=== PATIENT | female | born 1995 | race Caucasian/White ===

== ENCOUNTER 2017-09-01 08:57 | Inpatient (IN) | payer OTHER ==
[2017-09-01] MEDS ORDERED: Ringers Lactate 1,000 ML IV SCH (09:00)
[2017-09-01] MEDS ORDERED: METOCLOPRAMIDE 10 MG/2mL INJ IV PRN (09:00)
[2017-09-01] MEDS ORDERED: DIPHENHYDRAMINE 50 MG/ML VIAL IV PRN (09:00)
[2017-09-01] MEDS ORDERED: miSOPROStol 100 MCG TAB PO ONE (09:00)
[2017-09-01] MEDS ORDERED: ONDANSETRON 4 MG/2 ML VIAL IV PRN (09:00)
[2017-09-01] MEDS ORDERED: Ringers Lactate 1,000 ML IV PRN (09:00)
--- OUTSIDE RECORDS SUMMARY | 2017-09-01 10:21 | XMS REPORT ---
:1995 Author Organization eClinicalWorks Care Team Providers Name Role Phone Jaqui Cerda Provider Role Unavailable Allergies No Known Allergies Problems Problem Type Condition Code Onset Dates Condition Status Problem Normal in third trimester Z34.93 Active Assessment Normal in third trimester Z34.93 Active Problem Encounter for planned induction of Z34.90 Active labor Assessment Encounter for planned induction of Z34.90 Active labor Medications Medication Code System Code Instructions Start Date End Date Status Dosage Ferralet 90 [facility] [place] [address] 90 orally once a Jun 16, Active one tablet - day 2017 Results No Known Results Summary Purpose eClinicalWorks Submission
[2017-09-01 11:08] LABS: RPR Titer ND
[2017-09-01 11:11] LABS: Urine Appearance CLOUDY; Urine Bilirubin NEGATIVE (NEG); Urine Blood NEGATIVE (NEG); Urine Color YELLOW; Urine Glucose NEGATIVE (NEG); Urine Protein NEGATIVE (NEG); Urine Specific Gravity 1.015 (1.005-1.030); Urine Urobilinogen 0.2 mg/dL (0.2-1.0)
[2017-09-01 11:19] LABS: Urine Microscopic Reflex ORDER UMIC
[2017-09-01 11:28] LABS: Absolute Lymphocytes (CBC) 1.3 K/uL (0.7-4.9); Absolute Monocytes 0.6 K/uL (0.1-1.3); Absolute Neutrophil 6.4 K/uL (1.8-8.0); Basophils % 0.2 % (0-1.3); Eosinophils % 0.2 % (0-4.4); Hematocrit 36.9 % (36.0-45.0); Lymphocytes % 15.2 % (15.3-44.8); MCH 32.2 pg (27.0-35.0); MCV 92.5 fL (80-100); MPV 8.4 fL (7.6-11.3); Monocytes % 7.1 % (3.3-12.3); RBC Red Blood Cell Count 3.99 M/uL (3.86-4.86)
[2017-09-01 11:31] LABS: Urine Bacteria 20-50 /HPF (<20); Urine Culture Reflex Order REFLEXED; Urine RBC <5 /HPF (NONE SEEN)
[2017-09-01 11:56] VITALS: BMI 30.7
[2017-09-01] MEDS ORDERED: miSOPROStol 100 MCG TAB VAG SCH (15:00)
--- NOTE | 2017-09-01 15:31 | P.HP ---
Certification for Inpatient Patient admitted to: Inpatient With expected LOS: >2 Midnights Patient will require the following post-hospital care: None Practitioner: I am a practitioner with admitting privileges, knowledge of patient current condition, hospital course, and medical plan of care. Services: Services provided to patient in accordance with Admission requirements found in Title 42 Section 412.3 of the Code of Federal Regulations Patient History Date of Service: 09/01/17 Reason for admission: Induction of labor History of Present Illness: 22 y.o. G1 at 40w6d admitted for IOL. She is going to have cervical ripening with cytotec. Her has been overall uncomplicated and she has had adequate care. She has been prescribed iron supplementation for mild anemia with adequate response. Fetus cephalic by U/S 3 days ago. She denies painful contractions, LOF, or vaginal bleeding. GBS negative. JOYCE: 08/26/2017. Allergies No Known Allergies Allergy (Verified 09/01/17 11:08) Home Medications: Iron Carb,Gl/FA/B12/C/Docusate [Ferralet 90 Tablet] 1 pill PO DAILY 09/01/17 Vit/Fe Fumarate/FA [ Rx Tablet] 1 each PO DAILY 09/01/17 - Past Medical/Surgical History Has patient received pneumonia vaccine in the past: No Diabetic: No Past Medical History: Patient denies medical history -: Mild anemia -: T&A 1996 -: [place] teeth removal 2007 - Family History Father -: Hypertension - Social History Smoking Status: Never smoker Alcohol use: No CD- Drugs: No Caffeine use: No Place of Residence: Home Review of Systems 10-point ROS is otherwise unremarkable Physical Examination - Vital Signs Temperature: 97.8 F Blood Pressure: 124/72 Pulse: 81 Respirations: 20 - Physical Exam General: Alert, In no apparent distress Respiratory: Other (Normal effort) Cardiovascular: Normal pulses Musculoskeletal: Swelling (Trace B/L LE edema) Integumentary: No rashes, No breakdown Neurological: Normal strength at 5/5 x4 extr - Studies Laboratory Data (last 24 hrs) 09/01/17 10:40: WBC 8.3, Hgb 12.9, Hct 36.9, Plt Count 217 Female Exam - Female Pelvic Cervix: Dilation (closed by nursing exam), Effacement (thick), station ( high) - Obstetrics heart rate tracing: Category 1 Contractions: Frequency (Irregular) Amniotic membrane: Intact Assessment and Plan - Problems (Diagnosis) (1) Elective induction of labor planned Current Visit: Yes Status: Acute Plan: Admit to L&D for cervical ripening. Start with PO cytotec then transition to PV. Plan for 3 doses, following by pitocin when favorable. May be up to ambulate following 1h continuous monitoring after cytotec dosing. May have ice chips and popsicles for now. - Advance Directives Does patient have a Living Will: No Does patient have a Durable POA for Healthcare: No
[2017-09-01] MEDS ORDERED: miSOPROStol 100 MCG TAB VAG ONE (21:15)
[2017-09-01 22:11] LABS: RPR (Rapid Plasma Reagin) NON-REACT (NON-REACT)
[2017-09-02] MEDS ORDERED: BUTORPHANOL 1 MG/ML INJ ONE (02:51)
[2017-09-02] MEDS ORDERED: BUTORPHANOL 1 MG/ML INJ IV ONE (03:06)
[2017-09-02] MEDS ORDERED: ROPIVACAINE HCL 100 ML IV PRN (03:09)
[2017-09-02] MEDS ORDERED: FENTANYL CITR 100 MCG/2 ML IV ONE (03:09)
[2017-09-02] MEDS ORDERED: ROPIVACAINE HCL 2 MG/ML 100ML IV ONE (03:10)
[2017-09-02] MEDS ORDERED: ROPIVACAINE HCL 20 ML ONE ×2 (03:17→11:53)
--- NOTE | 2017-09-02 09:03 | P.PN ---
Subjective Date of Service: 09/02/17 Chief Complaint: Induction of labor Subjective: Doing well (Pain is well controlled now with epidural.) Review of Systems 10-point ROS is otherwise unremarkable Physical Examination - Vital Signs Temperature: 97.8 F Blood Pressure: 124/72 Pulse: 81 Respirations: 20 - Physical Exam General: Alert, In no apparent distress, Oriented x3 Respiratory: Other (Normal effort) Cardiovascular: Normal pulses Gastrointestinal: Other (Gravid, soft, nontender) Musculoskeletal: Swelling (Trace lower extremity pitting edema bilaterally) Integumentary: No rashes, No breakdown Other Physical/Emotional Findings: Cervix: /-1, anterior, soft - Studies Laboratory Data (last 24 hrs) 09/01/17 10:40: WBC 8.3, Hgb 12.9, Hct 36.9, Plt Count 217 Assessment And Plan - Current Problems (Diagnosis) (1) Elective induction of labor planned Onset Date: 09/02/17 Current Visit: Yes Status: Acute Plan: Patient status post 3 doses of Cytotec for cervical ripening. She had spontaneous rupture membranes at around 3:00 a.m. with clear fluid noted per RN. (2) SROM (spontaneous rupture of membranes) Current Visit: Yes Status: Acute Plan: Will start Pitocin for augmentation. Patient is doing well with epidural for pain control and Medina is in place. Will keep on continuous monitoring. MF status is overall reassuring.
[2017-09-02] MEDS ORDERED: OXYTOCIN/LR 20 UNIT/1,000 ML BAG IV SCH (10:00)
[2017-09-02] MEDS ORDERED: NA CIT/CITRIC AC 30 ML ORAL UDC PO ONE (10:38)
[2017-09-02] MEDS ORDERED: METOCLOPRAMIDE 10 MG/2mL INJ IV SCH (11:00)
[2017-09-02] MEDS ORDERED: ROPIVACAINE HCL 0.2% 20ML AMP IV ONE (11:59)
[2017-09-02] MEDS ORDERED: LIDOCAINE 2% INJ, 20 mL 0 ML ONE (12:31)
[2017-09-02] MEDS ORDERED: METHYLERGONOVINE 0.2MG/ML AMP IM ONE (12:41)
[2017-09-02] MEDS ORDERED: CARBOPROST TROME 250 MCG/ML IM ONE (12:41)
[2017-09-02] MEDS ORDERED: OXYTOCIN 10 UNIT/ML ML IV ONE (18:37)
[2017-09-02] MEDS ORDERED: MORPHINE SULFATE/PF 1 MG/ML (10 ML AMP) ONE (18:37)
[2017-09-02] MEDS ORDERED: LIDOCAINE 2% W/EPI 1:200,000 MPF 20 ML VIAL IM ONE ×2 (18:37→19:44)
[2017-09-02] MEDS ORDERED: CEFAZOLIN/SWI 2gm 2 GM/20 ML SYR ONE (18:42)
--- NOTE | 2017-09-02 18:44 | P.PN ---
Date of Service: 09/02/17 Pt seen and examined. She has been pushing for over 2 hours with little progress. Caput/edema noted. position likely ARMANI. Discussed continuing second stage, episiotomy and vacuum extraction, but patient declines. She doesn 't wish to continue pushing and is requesting a . Benefits, risks, and alternatives discussed. Notified anesthesia and OR staff. OR is not ready yet and needs to be cleaned. Discussed with in house counsel who reports she discussed with cleaning crew. Proceed to OR when ready.
[2017-09-02] MEDS ORDERED: MORPHINE 4 MG/ML SYR IV PRN (20:12)
[2017-09-02] MEDS ORDERED: DOCUSATE NA/SENNA CONC 1 TAB PO PRN (20:12)
[2017-09-02] MEDS ORDERED: ZOLPIDEM TARTRATE 5 MG TABLET PO PRN (20:12)
[2017-09-02] MEDS ORDERED: ACETAMINOPHEN 500 MG TAB PO PRN (20:12)
--- NOTE | 2017-09-02 20:19 | P.OP ---
Day Habilitation Supervisor: David Serrano Preoperative diagnosis: Second stage arrest Postoperative diagnosis: Same Primary procedure: 1'LTCS Anesthesia: Combined spinal-epidural Estimated blood loss: 600 cc Specimen: Placenta Findings: See operative report Operative Technique: Intra-operative findings: The uterus, fallopian tubes and ovaries were found to be normal. Signs of inflammation noted, possible PID.The infant was in a LOP position. The is female and weighed 8 lb 12 oz. The 's Apgars were 9 at 1 min. and 10 at 5 min. Procedure described: The patient was taken to the operating room within IV running with antibiotics infusing where she was placed in a dorsal supine position with a slight leftward tilt. She was prepped and draped in the normal sterile fashion from the xiphoid sternum to the midthighs including the vulva and vagina. A Med[place] catheter was already placed and connected to dependent drainage. PAS stockings were in place and activated. A timeout was done per our usual protocol. A Pfannenstielincision was made about 1 cm above the symphysis pubis and carried out through the subcutaneous tissue with the scalpel. The fascia was nicked in the midline and the fascial incision was extended laterally with Azul scissors. The superior aspect of the fascial incision was tented up and bluntly and sharply dissected off the rectus muscles below. In a similar fashion, the inferior aspect of the fascial incision was tented up and bluntly and sharply dissected off the rectus muscles below. The rectus muscles were in the midline, the peritoneum was identified and entered sharply between two hemostats using Metzenbaum scissors. The peritoneal incision was extended superiorly and inferiorly with good visualization of intraperitoneal organs and the bladder. The bladder blade was placed and a bladder flap was developed. The bladder blade was replaced and a transverse curvilinear incision was made in the lower uterine segment. The incision was extended laterally with blunt digital dissection. The surgeon's hand was placed into the incision gently and the 's head was elevated, releasing suction. The head was delivered, followed by the torso with ease. The mouth and nose were suctioned with and suction bulb. The umbilical cord was clamped and cut and the infant was handed off to the waiting care attendants. Cord blood was obtained. The uterus was massaged and the placenta was expressed. The uterus was exteriorized and cleared of all clots and debris. The bladder blade was replaced, the edges of the uterine incision where grasped with ring forceps and the incision was closed using 0-Monocryl suture in a running un-locking fashion and closed in 2 layers. The incision was inspected and found to be hemostatic. The bladder peritoneum was then closed with 3-0 Monocryl suture in a running fashion. The pelvic peritoneum was not irrigated, but was cleared of all clots and debris. The uterus was replaced into the peritoneal cavity. The medial edges of the rectus muscles were plicated in the midline using 3-0 Monocryl suture in a running, unlocked fashion. The rectus muscles were inspected and found to be hemostatic. The fascia was then closed with 0-Vicryl suture in a running fashion. The subcutaneous tissues were copiously lavaged with warm normal saline. Hemostasis was noted. The skin was closed with a subcuticular stitch of 3-0 Monocryl suture. The incision was cleansed, tincture of benzoin was applied and 1/2 inch Steri-Strips were applied. An occlusive dressing was applied. Sponge, needle, instrument counts were correct x 2. There were no complications and patient tolerated the procedure well. She was taken to recovery in good condition and allowed to castaneda with infant Complications: None Transferred to: Recovery Room Condition: Good
[2017-09-02] MEDS: KETOROLAC 30 MG/ML INJ IV SCH (21:00)
[2017-09-02] MEDS ORDERED: NA CHLORIDE 0.9% 1,000 ML IV SCH (21:00)
[2017-09-02] MEDS ORDERED: Ringers Lactate 2,000 ML IV ONE (21:15)
[2017-09-02] MEDS: METOCLOPRAMIDE 10 MG/2mL INJ IV SCH (21:37)
[2017-09-03 02:53] LABS: HBsAG Nonreactive (Nonreactive)
[2017-09-03] MEDS: METOCLOPRAMIDE 10 MG/2mL INJ IV SCH (02:54)
[2017-09-03] MEDS: KETOROLAC 30 MG/ML INJ IV SCH (02:54)
[2017-09-03 06:13] LABS: Absolute Lymphocytes (CBC) 1.2 K/uL (0.7-4.9); Absolute Monocytes 0.8 K/uL (0.1-1.3); Absolute Neutrophil 11.7 K/uL (1.8-8.0); Basophils % 0.2 % (0-1.3); Hematocrit 31.3 % (36.0-45.0); Lymphocytes % 8.6 % (15.3-44.8); MCH 31.8 pg (27.0-35.0); MCV 92.8 fL (80-100); MPV 8.3 fL (7.6-11.3); Monocytes % 5.8 % (3.3-12.3); RBC Red Blood Cell Count 3.37 M/uL (3.86-4.86)
[2017-09-03 06:58] LABS: Blood Morphology Comment NOTED (NOT SEEN); Ovalocytes 1+; Platelet Estimate ADEQ
[2017-09-03] MEDS ORDERED: FAMOTIDINE 20 MG/2 ML VIAL IV SCH (09:00)
--- NOTE | 2017-09-03 09:24 | P.PN ---
Subjective Date of Service: 09/03/17 Chief Complaint: Induction of labor Subjective: Tolerating diet, Improving, Doing well Pain is well controlled. She is requesting an abdominal binder. Ambulation encouraged initially with assistance. Baby is doing well. Review of Systems 10-point ROS is otherwise unremarkable Physical Examination - Vital Signs Temperature: 98.2 F Blood Pressure: 121/69 Pulse: 93 Respirations: 20 - Physical Exam General: Alert, In no apparent distress, Oriented x3 Respiratory: Clear to auscultation bilaterally, Normal air movement Cardiovascular: Regular rate/rhythm, Normal S1 S2 Gastrointestinal: Hypoactive, Soft and benign, No rebound, No guarding, Other ( Dressing is C/D/I) Musculoskeletal: No erythema, No tenderness, Swelling (2+ B/L LE edema) Integumentary: No rashes, No breakdown Neurological: Normal speech, Normal strength at 5/5 x4 extr Other Physical/Emotional Findings: Cervix: 3/90/-1, anterior, soft - Studies Laboratory Data (last 24 hrs) 09/03/17 04:41: WBC 13.7 H D, Hgb 10.7 L, Hct 31.3 L D, Plt Count 168 D Microbiology Data (last 24 hrs): 09/01/17 10:40 Clean Catch Urine [place] Count - Final >100,000 CFU/ML. 09/01/17 10:40 Clean Catch Urine - Final Assessment And Plan - Current Problems (Diagnosis) (1) Elective induction of labor planned Onset Date: 09/02/17 Current Visit: Yes Status: Resolved (2) SROM (spontaneous rupture of membranes) Onset Date: 09/03/17 Current Visit: Yes Status: Resolved (3) delivery delivered Onset Date: 09/03/17 Current Visit: Yes Status: Acute Plan: Normal POD #1. Labs reviewed, H/H is appropriate. Routine post-op care is planned. Continue to advance diet, ambulation encouraged. Transition to oral pain meds. (4) Leukocytosis Current Visit: Yes Status: Acute Plan: Pt is afebrile and not tachycardic. No signs of acute infection. Repeat labs in AM. Qualifiers: Leukocytosis type: bandemia Qualified Code(s): D72.825 - Bandemia Plan to discharge in: 48 Hours
[2017-09-03] MEDS ORDERED: ONDANSETRON 4 MG (ODT) TAB PO PRN (09:31)
[2017-09-03] MEDS ORDERED: DIPHENHYDRAMINE 25 MG TAB/CAP PO PRN (09:31)
[2017-09-03] MEDS ORDERED: METOCLOPRAMIDE 5 MG TAB ONE (09:40)
[2017-09-03] MEDS ORDERED: HYDROCODONE/APAP 5/325 MG TAB ONE (09:41)
[2017-09-03] MEDS: METOCLOPRAMIDE 5 MG TAB PO SCH ×2 (09:44→17:02)
[2017-09-03] MEDS: HYDROCODONE/APAP 5/325 MG TAB PO PRN ×3 (09:44→20:14)
[2017-09-03] MEDS: IBUPROFEN 400 MG TAB PO PRN ×2 (13:03→21:45)
[2017-09-04] MEDS: METOCLOPRAMIDE 5 MG TAB PO SCH ×4 (00:30→18:18)
[2017-09-04] MEDS: HYDROCODONE/APAP 5/325 MG TAB PO PRN ×3 (04:00→13:27)
[2017-09-04 05:20] LABS: Absolute Lymphocytes (CBC) 1.4 K/uL (0.7-4.9); Absolute Monocytes 0.9 K/uL (0.1-1.3); Absolute Neutrophil 10.8 K/uL (1.8-8.0); Basophils % 0.1 % (0-1.3); Eosinophils % 0.2 % (0-4.4); Hematocrit 32.2 % (36.0-45.0); Lymphocytes % 10.4 % (15.3-44.8); MCH 31.7 pg (27.0-35.0); MCV 93.4 fL (80-100); MPV 7.9 fL (7.6-11.3); Monocytes % 7.2 % (3.3-12.3); RBC Red Blood Cell Count 3.45 M/uL (3.86-4.86)
[2017-09-04] MEDS: NA CHLORIDE 0.9% IVPB SCH ×2 (09:00→16:48)
[2017-09-04] MEDS: GENTAMICIN IVPB SCH ×2 (09:00→16:48)
--- NOTE | 2017-09-04 09:02 | P.DS ---
Admission Date: 09/01/17 Discharge Date: 09/07/17 Disposition: ROUTINE DISCHARGE Comment: D/c home due to developing signs of endometritis. Discharge Condition: GOOD Reason for Admission: Induction of labor - Problems (1) delivery delivered Onset Date: 09/03/17 Status: Resolved (2) Leukocytosis Status: Acute Qualifiers: Leukocytosis type: bandemia Qualified Code(s): D72.825 - Bandemia Brief History of Present Illness: 22 y.o. G1 at 40w6d admitted for IOL. She is going to have cervical ripening with cytotec. Her has been overall uncomplicated and she has had adequate care. She has been prescribed iron supplementation for mild anemia with adequate response. Fetus cephalic by U/S 3 days ago. She denies painful contractions, LOF, or vaginal bleeding. GBS negative. JOYCE: 08/26/2017. Hospital Course: Pt admitted for IOL, which was started with cervical ripening. She progressed well following SROM and was given epidural for pain control. During 2nd stage, her pain increased again despite re-dosing of epidural. We discussed continuing 2nd stage with vacuum delivery, but patient declined and requested a . It was done without incident. On POD #2 patient developed low grade temp, bandemia, and uterine tenderness. Discharge home was held and abx were given for greater than 24 h and clinical improvement prior to d/c home. Vital Signs/Physical Exam: Temp Pulse Resp BP Pulse Ox 99.2 F 87 16 123/75 09/04/17 07:30 09/04/17 07:30 09/04/17 07:30 09/04/17 07:30 General: Alert, In no apparent distress, Oriented x3 Respiratory: Clear to auscultation bilaterally Cardiovascular: Normal S1 S2 Gastrointestinal: Normal bowel sounds (Tenderness on palpation. Incision: C/D/I ) Musculoskeletal: Swelling (B/L LE edema improving) Integumentary: No rashes, No breakdown Other Physical/Emotional Findings: Cervix: 3/90/-1, anterior, soft Laboratory Data at Discharge: WBC 13.2 K/uL (4.3-10.9) H 09/04/17 04:23 Hgb 10.9 g/dL (12.0-15.0) L 09/04/17 04:23 Hct 32.2 % (36.0-45.0) L 09/04/17 04:23 Plt Count 170 K/uL (152-406) 09/04/17 04:23 Home Medications: Iron Carb,Gl/FA/B12/C/Docusate [Ferralet 90 Tablet] 1 pill PO DAILY 09/01/17 Vit/Fe Fumarate/FA [ Rx Tablet] 1 each PO DAILY 09/01/17 Ibuprofen 800 mg PO Q8HP #45 tablet 09/04/17 New Medications: Ibuprofen 800 mg PO Q8HP #45 tablet Patient Discharge Instructions: See physician in 1 week for incision check. Call sooner for problems. Complete pelvic rest. Diet: Regular Activity: No lifting more than 10 lbs Followup: Jaqui Cerda MD [ACTIVE - CAN ADMIT] -
--- NOTE | 2017-09-04 15:58 | P.PN ---
Date of Service: 09/04/17 RN call to report increased temperature all did not meeting criteria for postop fever. However, due to possible risk, will order labs, re-establish IV, and start fluids as well as antibiotics. Will continue to monitor and hold off discharge tomorrow at this time.
[2017-09-04] MEDS ORDERED: Gentamicin Inj 120 MG in NA CHLORIDE 0.9% 100 ML IVPB ONE (16:00)
[2017-09-04] MEDS ORDERED: NA CHLORIDE 0.9% 1,000 ML ONE (16:14)
[2017-09-04 16:26] LABS: Absolute Lymphocytes (CBC) 1.2 K/uL (0.7-4.9); Absolute Monocytes 0.8 K/uL (0.1-1.3); Absolute Neutrophil 10.7 K/uL (1.8-8.0); Basophils % 0.1 % (0-1.3); Eosinophils % 0.2 % (0-4.4); Hematocrit 31.8 % (36.0-45.0); Lymphocytes % 9.4 % (15.3-44.8); MCH 32.5 pg (27.0-35.0); MPV 7.5 fL (7.6-11.3); Monocytes % 6.4 % (3.3-12.3); RBC Red Blood Cell Count 3.41 M/uL (3.86-4.86)
[2017-09-04 16:33] LABS: BUN Blood Urea Nitrogen 6 mg/dL (6-20); Bicarbonate 25 mEq/L (21-31); Glucose Level 88 mg/dL (65-120); Potassium 3.3 mEq/L (3.6-5.0); Sodium Level 139 mEq/L (135-145)
[2017-09-04] MEDS: NA CHLORIDE 0.9% 1,000 ML IV SCH (16:45)
[2017-09-04] MEDS: IBUPROFEN 400 MG TAB PO PRN (16:45)
[2017-09-04] MEDS: CLINDAMYCIN INJ 900 MG in NA CHLORIDE 0.9% 50 ML IV SCH (17:50)
[2017-09-04] MEDS ORDERED: AMPICILLIN SODIUM 125 MG VIAL IV SCH (18:00)
[2017-09-05] MEDS ORDERED: METHYLERGONOVINE 0.2MG/ML AMP IM ONE (00:54)
[2017-09-05] MEDS: GENTAMICIN IVPB SCH ×2 (01:00→13:44)
[2017-09-05] MEDS: NA CHLORIDE 0.9% IVPB SCH ×2 (01:00→13:44)
[2017-09-05] MEDS: NA CHLORIDE 0.9% 1,000 ML IV SCH (01:00)
[2017-09-05] MEDS: HYDROCODONE/APAP 5/325 MG TAB PO PRN ×2 (01:00→07:16)
[2017-09-05] MEDS: CLINDAMYCIN INJ 900 MG in NA CHLORIDE 0.9% 50 ML IV SCH ×3 (02:10→16:45)
[2017-09-05] MEDS: METOCLOPRAMIDE 5 MG TAB PO SCH ×3 (06:00→11:39)
[2017-09-05 06:48] LABS: Absolute Lymphocytes (CBC) 1.4 K/uL (0.7-4.9); Absolute Monocytes 0.6 K/uL (0.1-1.3); Absolute Neutrophil 7.5 K/uL (1.8-8.0); Basophils % 0.2 % (0-1.3); Hematocrit 32.1 % (36.0-45.0); Lymphocytes % 14.2 % (15.3-44.8); MCH 32.4 pg (27.0-35.0); MCV 93.4 fL (80-100); MPV 7.6 fL (7.6-11.3); Monocytes % 6.4 % (3.3-12.3); RBC Red Blood Cell Count 3.44 M/uL (3.86-4.86)
[2017-09-05 07:02] LABS: BUN Blood Urea Nitrogen 5 mg/dL (6-20); Bicarbonate 27 mEq/L (21-31); Glucose Level 78 mg/dL (65-120); Potassium 3.5 mEq/L (3.6-5.0); Sodium Level 140 mEq/L (135-145)
--- NOTE | 2017-09-05 12:09 | P.PN ---
Subjective Date of Service: 09/07/17 Chief Complaint: Induction of labor Pain is well controlled. She is doing well, and advancing well. She denies complaints. Review of Systems 10-point ROS is otherwise unremarkable Physical Examination - Vital Signs Temperature: 98.1 F Blood Pressure: 129/88 Pulse: 86 Respirations: 16 - Physical Exam General: Alert, In no apparent distress, Oriented x3 Respiratory: Clear to auscultation bilaterally Cardiovascular: Normal pulses, Normal S1 S2 Gastrointestinal: Normal bowel sounds, Soft and benign, Other (Incision: C/D/I. SubQ closure) Musculoskeletal: Swelling (B/L LE pitting edema, but improved from yesterday) Integumentary: No rashes, No breakdown Neurological: Normal strength at 5/5 x4 extr Other Physical/Emotional Findings: Cervix: 3/90/-1, anterior, soft - Studies Laboratory Data (last 24 hrs) 09/05/17 06:17: Sodium 140, Potassium 3.5 L, BUN 5 L, Creatinine 0.42 L, Glucose 78 09/05/17 06:17: WBC 9.5 D, Hgb 11.2 L, Hct 32.1 L, Plt Count 190 09/04/17 16:10: Sodium 139, Potassium 3.3 L, BUN 6, Creatinine 0.44, Glucose 88 09/04/17 16:10: WBC 12.8 H, Hgb 11.1 L, Hct 31.8 L, Plt Count 197 Assessment And Plan - Current Problems (Diagnosis) (1) delivery delivered Onset Date: 09/03/17 Status: Acute Plan: Normal POD #2, progressing. Ambulation encouraged. Pain is well controlled. (2) Leukocytosis Status: Acute Plan: Pt with elevating temp tachycardia noted. Abx stated. Plan for at least 24h of treatment before considering d/c home. Pt verbalized understanding and agreed. Qualifiers: Leukocytosis type: bandemia Qualified Code(s): D72.825 - Bandemia
[2017-09-05] MEDS: IBUPROFEN 400 MG TAB PO PRN (12:30)
[2017-09-05 12:32] LABS: Absolute Lymphocytes (CBC) 1.4 K/uL (0.7-4.9); Absolute Monocytes 0.6 K/uL (0.1-1.3); Absolute Neutrophil 7.8 K/uL (1.8-8.0); Basophils % 0.3 % (0-1.3); Eosinophils % 1.3 % (0-4.4); Lymphocytes % 14.1 % (15.3-44.8); MCH 31.7 pg (27.0-35.0); MCV 94.4 fL (80-100); MPV 7.6 fL (7.6-11.3); Monocytes % 5.8 % (3.3-12.3)
[2017-09-07 21:58] VITALS: BP 129/88; TEMP 98.1
== END 2017-09-05 17:25 | disposition home or self-care (01) | DRG 765 ==
LOC: 2ND-WC 10:05
PROVIDERS: ADMIT Obstetrics & Gynecology; ATTEND Obstetrics & Gynecology
PROC: 3E0P7VZ Introduction of Hormone into Female Reproductive, Via Natural or Artificial Opening (ICD-10-PCS; 2017-09-02)
PROC: 10D00Z1 Extraction of Products of Conception, Low, Open Approach (ICD-10-PCS; principal; 2017-09-02 19:06)
DX: O99.02 Anemia complicating childbirth (principal); O86.12 Endometritis following delivery; D64.9 Anemia, unspecified; O62.1 Secondary uterine inertia; Z3A.40 40 weeks gestation of pregnancy; Z37.0 Single live birth
CPT/HCPCS: 36415; 80048; 80170; 81003; 81015; 85025; 86592; 86850; 86900; 86901; 87086; 87088; 87340; 88305; 88307; J0595; J0690; J1580; J2210; J2405; J2590; J2765; J2795; J3010; J7030

== ENCOUNTER 2018-10-28 09:33 | Inpatient (IN) | payer OTHER ==
[2018-10-27 12:11] LABS: RPR Titer ND
[2018-10-27 12:31] LABS: Absolute Lymphocytes (CBC) 1.2 K/uL (0.7-4.9); Basophils % 0.2 % (0-1.3); Eosinophils % 0.1 % (0-4.4); Hematocrit 34.2 % (36.0-45.0); Lymphocytes % 14.4 % (15.3-44.8); Monocytes % 8.3 % (3.3-12.3); RBC Red Blood Cell Count 4.01 M/uL (3.86-4.86)
[2018-10-27 12:50] LABS: Urine Appearance CLEAR; Urine Bilirubin NEGATIVE (NEG); Urine Blood NEGATIVE (NEG); Urine Color YELLOW; Urine Glucose NEGATIVE (NEG); Urine Protein NEGATIVE (NEG); Urine Specific Gravity <=1.005 (1.005-1.030); Urine Urobilinogen 0.2 mg/dL (0.2-1.0)
[2018-10-27 13:13] LABS: Urine Microscopic Reflex NO UMIC
[2018-10-27 21:09] LABS: RPR (Rapid Plasma Reagin) NON-REACT (NON-REACT)
[~2018-10-28 09:33] MED LIST: CEFAZOLIN/SWI 2gm 2 GM/20 ML SYR IV ONE
[2018-10-28] MEDS ORDERED: METHYLERGONOVINE 0.2MG/ML AMP IM PRN (09:54)
[2018-10-28] MEDS ORDERED: CARBOPROST TROME 250 MCG/ML IM PRN (09:54)
[2018-10-28] MEDS ORDERED: Ringers Lactate 1,000 ML IV PRN (09:54)
--- OUTSIDE RECORDS SUMMARY | 2018-10-28 09:56 | XMS REPORT ---
:1995 Author Organization eClinicalWorks Care Team Providers Name Role Phone Maggie David Provider Role Unavailable Allergies, Adverse Reactions, Alerts Substance Reaction Event Type N.K.D.A. Info Not Available Non Drug Allergy Problems Problem Type Condition Code Onset Dates Condition Status Problem Encounter for planned induction of Z34.90 Active labor Problem Normal in third Z34.93 Active trimester Problem Short interval between pregnancies O09.892 Active affecting in second trimester, antepartum Problem Uterine scar from previous O34.29 Active delivery affecting Problem Supervision of high risk O09.92 Active in second trimester Problem H/O section Z98.891 Active Problem delivery delivered O82 Active Problem Supervision of high risk O09.91 Active in first trimester Problem Short interval between pregnancies O09.891 Active affecting in first trimester, antepartum Assessment Supervision of high risk O09.91 Active in first trimester Assessment Encounter to determine O36.80X0 Active viability of , single or unspecified fetus Assessment Encounter for care in Z34.01 Active first trimester of first Assessment Short interval between pregnancies O09.891 Active affecting in first trimester, antepartum Assessment Amenorrhea N91.2 Active Medications Medication Code System Code Instructions Start Date End Date Status Dosage Ferralet 90 [facility] [address] 90 orally once a Jun 16, Active one tablet -2017 Results Name Result Date Reference Range Unit Abnormality Flag URINALYSIS AUTO W/O SCOPE (63544) ----JEFFRY neg [id number] ----KETONES neg [id number] ----SPECIFIC GRAVITY 1.020 [id number] ----BLO neg [id number] ----pH 7.0 [id number] ----PROTEIN neg [id number] ----URO 0.2 [id number] ----NIT neg [id number] ----GLUCOSE neg [id number] ----BILIRUBIN neg [id number] SURESWAB(R) CHLAMYDIA/ N. GONORRHOEAE RNA, TMA ----CHLAMYDIA TRACHOMATIS NOT DETECTED [id number] NOT DETECTED N RNA, TMA, UROGENITAL ----NEISSERIA GONORRHOEAE NOT DETECTED [id number] NOT DETECTED N RNA, TMA, UROGENITAL CULTURE, URINE, ROUTINE ----CULTURE, URINE, SEE NOTE [id number] ROUTINE Summary Purpose eClinicalWorks Submission
--- OUTSIDE RECORDS SUMMARY | 2018-10-28 09:56 | XMS REPORT ---
:1995 Author Organization eClinicalWorks Care Team Providers Name Role Phone Maggie David Provider Role Unavailable Allergies, Adverse Reactions, Alerts Substance Reaction Event Type N.K.D.A. Info Not Available Non Drug Allergy Problems Problem Type Condition Code Onset Dates Condition Status Problem Encounter for planned induction of Z34.90 Active labor Problem Normal in third trimester Z34.93 Active Assessment Uterine scar from previous O34.29 Active delivery affecting Assessment Short interval between pregnancies O09.892 Active affecting in second trimester, antepartum Assessment Supervision of high risk O09.92 Active in second trimester Problem Short interval between pregnancies O09.892 [...] O09.891 Active affecting in first trimester, antepartum Medications Medication Code System Code Instructions Start Date End Date Status Dosage Ferralet 90 [facility] [address] 90 orally once a Jun 16, Active one tablet 9- day 2017 Results No Known Results Summary Purpose eClinicalWorks Submission
--- OUTSIDE RECORDS SUMMARY | 2018-10-28 09:56 | XMS REPORT ---
:1995 Author Organization eClinicalWorks Care Team Providers Name Role Phone David Serrano Provider Role Unavailable Allergies No Known Allergies Problems Problem Type Condition Code Onset Dates Condition Status Problem Normal in third trimester Z34.93 Active Problem delivery delivered O82 Active Problem Encounter for planned induction of Z34.90 Active labor Assessment Uterine scar from previous O34.29 Active delivery affecting Assessment Short interval between pregnancies O09.892 Active affecting in second trimester, antepartum Assessment Supervision of high risk O09.92 Active in second trimester Problem Supervision of high risk O09.92 Active in second trimester Problem Short interval between pregnancies O09.892 Active affecting in second trimester, antepartum Problem Need for Tdap vaccination Z23 Active Problem Short interval between pregnancies O09.891 Active affecting in first trimester, antepartum Problem H/O section Z98.891 Active Problem Uterine scar from previous O34.29 Active delivery affecting Problem Supervision of high risk O09.91 Active in first trimester Medications Medication Code System Code Instructions Start Date End Date Status Dosage Ferralet [address] [facility] [address] 90 orally once a Jun 16, Active one tablet 9-90 day 2017 Results No Known Results Summary Purpose [employer] Submission
--- OUTSIDE RECORDS SUMMARY | 2018-10-28 09:56 | XMS REPORT ---
[...] high risk O09.92 Active in second trimester Assessment Need for Tdap vaccination Z23 Active Problem Supervision of high risk O09.92 Active [...] Status Dosage Ferralet 90 [facility] [address] 90 orally once a Jun 16, Active one tablet 9-90 day 2018 Results No Known Results Immunizations Vaccine Administration Date TDAP > 7 Years-Adacel August 31, 2018 Summary Purpose eClinicalWorks Submission
--- OUTSIDE RECORDS SUMMARY | 2018-10-28 09:56 | XMS REPORT ---
[...] Date End Date Status Dosage Ferralet 90 [facility] [address] 90 orally once a Jun 16, Active one tablet 9-90 day 2017 Results No Known Results Summary Purpose [employer]Works Submission
--- OUTSIDE RECORDS SUMMARY | 2018-10-28 09:56 | XMS REPORT ---
:1995 Author Organization eClinicalWorks Care Team Providers Name Role Phone David Serrano Provider Role Unavailable Allergies No Known Allergies Problems Problem Type Condition Code Onset Dates Condition Status Problem Encounter for planned induction of Z34.90 Active labor Problem Normal in third trimester Z34.93 Active Assessment Supervision of high risk O09.92 Active [...] Date End Date Status Dosage Ferralet 90 [facility] [address] 90 orally once a Jun 16, Active one tablet 9- day 2017 Results No Known Results Summary Purpose [employer] Submission
--- OUTSIDE RECORDS SUMMARY | 2018-10-28 09:56 | XMS REPORT ---
[...] Date End Date Status Dosage Ferralet 90 [facility] [address] 90 orally once a Jun 16, Active one tablet 9- day 2017 Results No Known Results Summary Purpose eClinicalWorks Submission
--- OUTSIDE RECORDS SUMMARY | 2018-10-28 09:56 | XMS REPORT ---
[...] Date End Date Status Dosage Ferralet 90 [facility] [address] 90 orally once a Jun 16, Active one tablet 9-90 day 2017 Results No Known Results Summary Purpose eClinicalWorks Submission
--- OUTSIDE RECORDS SUMMARY | 2018-10-28 09:56 | XMS REPORT ---
:1995 Author Organization eClinicalWorks Care Team Providers Name Role Phone David Serrano Provider Role Unavailable Allergies No Known Allergies Problems Problem Type Condition Code Onset Dates Condition Status Problem Normal in third trimester Z34.93 Active Problem delivery delivered O82 Active Problem Encounter for planned induction of Z34.90 Active labor Problem Supervision of high risk O09.92 Active [...] risk O09.91 Active in first trimester Medications No Known Medications Results No Known Results Summary Purpose eClinicalWorks Submission
--- OUTSIDE RECORDS SUMMARY | 2018-10-28 09:56 | XMS REPORT ---
[...] Status Dosage Ferralet 90 [facility] [address] 90 orally once a Jun 16, Active one tablet 9-90 day 2017 Results No Known Results Summary Purpose eClinicalWorks Submission
[2018-10-28] MEDS ORDERED: Ringers Lactate 1,000 ML IV SCH (10:00)
[2018-10-28] MEDS ORDERED: OXYTOCIN/LR 20 UNIT/1,000 ML BAG IV SCH (10:00)
[2018-10-28] MEDS ORDERED: METOCLOPRAMIDE 10 MG/2mL INJ ONE (10:41)
[2018-10-28] MEDS ORDERED: NA CIT/CITRIC AC 30 ML ORAL UDC ONE (10:41)
[2018-10-28] MEDS ORDERED: FAMOTIDINE 20 MG/2 ML VIAL IV ONE (10:41)
[2018-10-28] MEDS ORDERED: CEFAZOLIN/SWI 2gm 2 GM/20 ML SYR ONE (10:42)
[2018-10-28] MEDS ORDERED: CEFAZOLIN/SWI 2gm 2 GM/20 ML SYR IV ONE (10:42)
[2018-10-28] MEDS ORDERED: MORPHINE SULFATE/PF 1 MG/ML (10 ML AMP) ONE (11:14)
[2018-10-28] MEDS ORDERED: EPHEDRINE SULF 50 MG/ML VIAL ONE (11:15)
[2018-10-28] MEDS ORDERED: OXYTOCIN 10 UNIT/ML ML IV ONE (11:16)
[2018-10-28] MEDS ORDERED: NS 0.9% VIAL 10 ML ONE (11:17)
[2018-10-28] MEDS ORDERED: ONDANSETRON 4 MG (ODT) TAB PO PRN (12:41)
[2018-10-28] MEDS ORDERED: Oxycodone HCl/Acetaminophen 1 TAB TAB PO PRN (12:41)
[2018-10-28] MEDS ORDERED: BISACODYL 10 MG RECTAL SUPP RECT PRN (12:41)
[2018-10-28] MEDS ORDERED: METHYLERGONOVINE 0.2 MG TAB PO PRN (12:41)
[2018-10-28] MEDS ORDERED: ACETAMINOPHEN 500 MG TAB PO PRN (12:41)
--- NOTE | 2018-10-28 12:46 | P.OP ---
Mortar Man: Kp Patterson Preoperative diagnosis: prior section, declines Postoperative diagnosis: same Primary procedure: Repeat low transverse section Anesthesia: Spinal Estimated blood loss: 800 cc Specimen: Cord blood, placenta Findings: Viable male cephalic presentation, Apgars 9 9 Operative Technique: The patient was taken to the operating room where spinal anesthesia was administered without difficulty. The patient was prepped and draped in the usual sterile fashion in the dorsal supine position with a leftward tilt. A Pfannenstiel skin incision was made with the scalpel and carried through to the underlying layer of fascia using the scalpel. The fascia was incised in the midline and extended laterally using Azul scissors. Rogerio clamps were used to elevate the superior aspect of the fascial incision, which was elevated, and the underlying rectus muscles were dissected off bluntly and using Azul scissors. Attention was then turned to the inferior aspect of the fascial incision, which in similar fashion was grasped with Rogerio clamps, elevated, and the underlying rectus muscles were dissected off bluntly and using the Bovie. The rectus muscles were dissected in the midline. The peritoneum was identified and entered using Metzenbaum scissors; this incision was extended superiorly and inferiorly with good visualization of the bladder. The bladder blade was inserted. The vesicouterine peritoneum was identified and entered sharply using Metzenbaum scissors. This incision was extended laterally and the bladder flap was created digitally. The bladder blade was reinserted. The lower uterine segment was incised in a transverse fashion using the scalpel and extended using bandage scissors as well as manual traction. Clear fluid was noted. The infant was subsequently delivered. The nose and mouth were bulb suctioned. The cord was clamped and cut. The was subsequently handed to the awaiting nursery nurse. The placenta was delivered spontaneously intact with a three-vessel cord noted. The uterus was exteriorized and cleared of all clots and debris. The uterine incision was repaired in 2 layers using 0 vicryol sutures. Hemostasis was visualized. The vesical uterine peritoneum was reapproximated with 3 O Vicryl. The uterus was returned to the abdomen. The uterine incision was reexamined and it was noted to be hemostatic. The rectus muscles were reapproximated in the midline using 0 Vicryl. The fascia was closed with 1 Vicryl suture, the subcutaneous layer was closed with 2-0 plain gut, and the skin was closed with 3 O Vicryl on a Kam needle. Sponge, lap, and instrument counts were correct x2. The patient was stable at the completion of the procedure and was subsequently transferred to the recovery room in stable condition. Complications: None Drain(s): Urinary catheter Transferred to: Recovery Room Condition: Good
[2018-10-28] MEDS: KETOROLAC 30 MG/ML INJ IV PRN (13:20)
[2018-10-28] MEDS ORDERED: KETOROLAC 30 MG/ML INJ ONE (13:20)
[2018-10-28] MEDS ORDERED: NALOXONE 0.4 MG/ML VIAL IV PRN (14:37)
[2018-10-28] MEDS ORDERED: DIPHENHYDRAMINE 50 MG/ML VIAL IV PRN (14:38)
[2018-10-28 15:44] VITALS: BMI 32.8
[2018-10-28] MEDS ORDERED: PROMETHAZINE 25 MG/ML VIAL IV PRN (15:47)
[2018-10-28] MEDS ORDERED: ONDANSETRON 4 MG/2 ML VIAL IV PRN (15:48)
[2018-10-28 16:11] VITALS: O2SAT 98
[2018-10-28] MEDS: Ringers Lactate 1,000 ML IV SCH (19:18)
[2018-10-29] MEDS: Ringers Lactate 1,000 ML IV SCH (04:00)
[2018-10-29 04:21] LABS: Absolute Lymphocytes (CBC) 1.2 K/uL (0.7-4.9); Basophils % 0.2 % (0-1.3); Eosinophils % 0.3 % (0-4.4); Hematocrit 29.1 % (36.0-45.0); Lymphocytes % 13.4 % (15.3-44.8); MPV 7.9 fL (7.6-11.3); Monocytes % 7.8 % (3.3-12.3); RBC Red Blood Cell Count 3.42 M/uL (3.86-4.86)
[2018-10-29] MEDS: KETOROLAC 30 MG/ML INJ IV PRN ×2 (04:57→11:00)
[2018-10-29] MEDS: DOCUSATE NA/SENNA CONC 1 TAB PO PRN (10:21)
[2018-10-29] MEDS: Oxycodone HCl/Acetaminophen 1 TAB TAB PO PRN ×2 (17:28→22:39)
[2018-10-29 20:01] LABS: HBsAG Nonreactive (Nonreactive)
[2018-10-30] MEDS: Oxycodone HCl/Acetaminophen 1 TAB TAB PO PRN (05:01)
[2018-10-30 05:17] VITALS: TEMP 98.7
[2018-10-30] MEDS ORDERED: IBUPROFEN 400 MG TAB PO SCH (08:00)
[2018-10-30] MEDS: DOCUSATE NA/SENNA CONC 1 TAB PO PRN (08:35)
[2018-10-30] MEDS ORDERED: IBUPROFEN 200 MG TAB PO ONE (08:43)
[2018-10-30] MEDS ORDERED: PRENATAL VITAMIN PO SCH (09:00)
[2018-10-30] MEDS ORDERED: FERROUS SULFATE 325 MG TAB PO SCH (09:00)
[2018-10-30 09:43] VITALS: BP 108/67
== END 2018-10-30 11:00 | disposition home or self-care (01) | DRG 788 ==
LOC: 2ND-WC 09:33
PROVIDERS: ADMIT Student in an Organized Health Care Education/Training Program; ATTEND Student in an Organized Health Care Education/Training Program
PROC: 10D00Z1 Extraction of Products of Conception, Low, Open Approach (ICD-10-PCS; principal; 2018-10-28 11:30)
DX: O34.211 Maternal care for low transverse scar from previous cesarean delivery (principal); Z3A.39 39 weeks gestation of pregnancy; Z37.0 Single live birth
CPT/HCPCS: 36415; 81003; 85014; 85025; 86592; 86850; 86900; 86901; 87340; 88307; J0690; J2210; J2405; J2590; J2765